=== PATIENT | male | born 1960 ===

== ENCOUNTER 2016-10-07 11:19 | Emergency (ER) | payer MEDICAID, OTHER ==
[2016-10-07 11:19] VITALS: BMI 32.3
[2016-10-07 11:44] VITALS: RESP 18; TEMP 98.2; O2SAT 98
--- NOTE | 2016-10-07 12:12 | ED PDOC ---
Arrival/HPI - General Historian: Patient - General Chief Complaint: Lower Extremity Problem/Injury Time Seen by Provider: 10/07/16 11:50 - History of Present Illness Narrative History of Present Illness (Text): 10/07/16 12:08 56yo male present with complaint of intermittent lower back pain that radiates to his b/l lower legs x 2months. States he saw his PMD for the pain and was given unknown analgesic. States taking the medication without relieve. States pain is with movement. Did not have any imaging test. Denies trauma, focal weakness, urinary/fecal incontinence, abdominal pain, any other complaint. (Yash Mcginnis A) Past Medical History - Provider Review Nursing Documentation Reviewed: Yes - Infectious Disease Hx of Infectious Diseases: None - Tetanus Immunization Tetanus Immunization: Unknown - Cardiac Hx Hypertension: Yes - Pulmonary Hx Respiratory Disorders: No - Neurological Hx Neurological Disorder: No - HEENT Hx HEENT Disorder: No - Renal Hx Renal Disorder: No - Endocrine/Metabolic Hx Endocrine Disorders: Yes Hx Diabetes Mellitus Type 1: Yes - Hematological/Oncological Hx Blood Disorders: No - Integumentary Hx Dermatological Disorder: No - Musculoskeletal/Rheumatological Hx Musculoskeletal Disorders: Yes Hx Arthritis: Yes - Gastrointestinal Hx Gastrointestinal Disorders: No - Genitourinary/Gynecological Hx Genitourinary Disorders: Yes (IMPOTENCE) - Psychiatric Hx Psychophysiologic Disorder: No Hx Depression: No Hx Emotional Abuse: No Hx Physical Abuse: No Hx Substance Use: No - Surgical History Hx Amputation: No Hx Appendectomy: No Hx Cholecystectomy: No Hx Gastric Bypass Surgery: No Hx Hysterectomy: No Hx Joint Replacement: No Hx Kidney Transplant: No Hx Liver Transplant: No Hx Mastectomy: No Hx Open Heart Surgery: No Hx Orthopedic Surgery: No Hx Splenectomy: No Hx Valve Replacement: No - Anesthesia Hx Anesthesia: Yes Hx Anesthesia Reactions: No Hx Malignant Hyperthermia: No - Suicidal Assessment Feels Threatened In Home Enviroment: No Family/Social History - Physician Review Nursing Documentation Reviewed: Yes Family/Social History: Unknown Family HX Smoking Status: Never Smoked Hx Alcohol Use: Yes Hx Substance Use: No Hx Substance Use Treatment: No Allergies/Home Meds Allergies/Adverse Reactions: Allergies No Known Allergies Allergy (Verified 09/02/12 19:47) Home Medications: Home Meds Medication Instructions Recorded Confirmed Lisinopril [Lisinopril] 5 mg PO DAILY 04/08/14 10/07/16 metFORMIN [glucOPHAGE] 500 mg PO DAILY 03/25/16 10/07/16 Review of Systems - Physician Review All systems were reviewed & negative as marked: Yes - Review of Systems Constitutional: Normal Eyes: Normal ENT: Normal Respiratory: Normal Cardiovascular: Normal Gastrointestinal: Normal Genitourinary Male: Normal Musculoskeletal: Back Pain Skin: Normal Neurological: Normal Endocrine: Normal Hemo/Lymphatic: Normal Psychiatric: Normal Physical Exam Vital Signs Reviewed: Yes Temperature: Afebrile Blood Pressure: Normal Pulse: Regular Respiratory Rate: Normal Appearance: Positive for: Well-Appearing, Non-Toxic, Comfortable Pain Distress: None Mental Status: Positive for: Alert and Oriented X 3 - Systems Exam Head: Present: Atraumatic, Normocephalic Pupils: Present: PERRL Extroacular Muscles: Present: EOMI Conjunctiva: Present: Normal Mouth: Present: Moist Mucous Membranes Neck: Present: Normal Range of Motion Respiratory/Chest: Present: Clear to Auscultation, Good Air Exchange. No: Respiratory Distress, Accessory Muscle Use Cardiovascular: Present: Regular Rate and Rhythm, Normal S1, S2. No: Murmurs Abdomen: Present: Normal Bowel Sounds. No: Tenderness, Distention, Peritoneal Signs Back: Present: Pain with Leg Raise (B/L). No: Midline Tenderness, Paraspinal Tenderness Upper Extremity: Present: Normal Inspection. No: Cyanosis, Edema Lower Extremity: Present: Normal Inspection. No: Edema Neurological: Present: GCS=15, CN II-XII Intact, Speech Normal Skin: Present: Warm, Dry, Normal Color. No: Rashes Psychiatric: Present: Alert, Oriented x 3, Normal Insight, Normal Concentration Vital Signs Temp Pulse Resp BP Pulse Ox 10/07/16 11:36 98.2 F 95 H 18 164/95 H 98 Medical Decision Making ED Course and Treatment: 10/07/16 13:26 LS xray - No acute finding Pt was treated with pain medication in ED. On re evaluation he was ambulatory with normal gait. He have no focal neurological deficit. Result was DW the pt. He was DC home with Tramadol and flexeril. Referred to ortho. TRT ED for any new or worsening symptoms (Diru,Happiness A) I was available for consultation during PA evaluation. The chart was reviewed by me, and I agree with disposition. The documented history was done by the physician checker product design. The documented physical exam was done by the physician checker product design. The documented procedures were done by the physician checker product design. (Jeremiah Coburn) - RAD Interpretation Radiology Orders: 10/07/16 11:56 LS SPINE WITH OBL > 18 YRS OLD [RAD] Stat - Medication Orders Current Medication Orders: Discontinued Medications Cyclobenzaprine HCl (Flexeril) 10 mg PO STAT STA Stop: 10/07/16 11:58 Last Admin: 10/07/16 12:30 Dose: 10 MG Ketorolac Tromethamine (Toradol) 60 mg IM STAT STA Stop: 10/07/16 11:57 Last Admin: 10/07/16 12:30 Dose: 60 MG IM Administration Charges Document 10/07/16 12:30 EAR (Rec: 10/07/16 12:30 EAR [id number]) Injection Site MAR Injection Site Left Deltoid Charges for Administration # of IM Administrations 1 Disposition/Present on Arrival - Present on Arrival Any Indicators Present on Arrival: No History of DVT/PE: No History of Uncontrolled Diabetes: No Urinary Catheter: No History of Decub. Ulcer: No History Surgical Site Infection Following: None - Disposition Have Diagnosis and Disposition been Completed?: Yes Disposition Time: 13:30 Patient Plan: Discharge - Disposition Diagnosis: Sciatica, Back pain Discharge Instructions (ExitCare): Back Pain (ED), Sciatica (ED) Additional Instructions: Take medication as directed Follow up with your Doctor/Orthopedist Return to ED for any new or worsening symptoms Prescriptions: Cyclobenzaprine [Flexeril] 5 mg PO BID #10 tab traMADol [Ultram] 50 mg PO TID #10 tab Referrals: John Eric III, MD [Medical Doctor] - Follow up with primary
--- NOTE | 2016-10-07 13:37 | RAD ---
PROCEDURE: Radiographs of the Lumbar Spine. HISTORY: back pain COMPARISON: No prior. FINDINGS: BONES: Normal alignment. No listhesis. No fracture. DISC SPACES: Unremarkable. 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
[2016-10-07 13:54] VITALS: BP 148/78; PULSE 78
== END 2016-10-07 13:56 | disposition home or self-care (01) ==
LOC: ED 11:19
DX: M54.40 Lumbago with sciatica, unspecified side (principal)
CPT/HCPCS: 72110; 96372; 99284; J1885